=== PATIENT | female | born 1995 | race Caucasian/White ===

== ENCOUNTER 2017-02-12 09:30 | Emergency (ER) | payer BC ==
[~2017-02-12 09:30] MED LIST: BACTRIM DS TABL1 TA1 PO; BACTRIM DS TABL1 TA2 DOB; BCP; BIRTH CONTROL PILL; BIRTH CONTROL PILL PO; COLACE PO; PHENERGAN25 M1 PO; PYRIDIUM PO; VOLTAREN75 MG PO; ZOFRAN PO
== END 2017-02-12 09:57 | disposition home or self-care (01) ==
LOC: SED 09:30
DX: S05.01XA Injury of conjunctiva and corneal abrasion without foreign body, right eye, initial encounter (principal); F41.9 Anxiety disorder, unspecified; X58.XXXA Exposure to other specified factors, initial encounter
CPT/HCPCS: 99283

== ENCOUNTER 2017-04-20 08:13 | Emergency (ER) | payer BC ==
[2017-04-20 09:06] LABS: URINE SOURCE CLEAN CATCH
[2017-04-20 09:09] LABS: URINE APPEARANCE CLEAR; URINE BILIRUBIN NEG (NEG); URINE BLOOD 2+ (NEG); URINE COLOR YELLOW; URINE GLUCOSE NEG (NORM); URINE KETONE NEG (NEG); URINE LEUKOCYTE ESTERASE 2+ (NEG); URINE NITRATE NEG (NEG); URINE PROTEIN NEG (NEG); URINE SPECIFIC GRAVITY 1.015 (1.003-1.035); URINE UROBILINOGEN 0.2 MG/DL (NORM)
[2017-04-20 09:15] LABS: MICRO INDICATED? YES
[2017-04-20 09:20] LABS: CULTURE INDICATED? YES; URINE BACTERIA NEG (NEG); URINE MUCUS PRESENT; URINE SQUAMOUS EPITHELIAL CELL MODERATE /[HPF]
[2017-04-23 17:22] LABS: CHLAMYDIA TRACH Not Detected (Not Detected); N GONOR Not Detected (Not Detected)
== END 2017-04-20 10:00 | disposition home or self-care (01) ==
LOC: SED 08:13
PROVIDERS: Emergency Medicine
DX: N76.0 Acute vaginitis (principal); N39.0 Urinary tract infection, site not specified; F41.9 Anxiety disorder, unspecified
CPT/HCPCS: 81003; 84703; 87086; 87491; 87591; 99283

== ENCOUNTER 2017-06-15 17:28 | Emergency (ER) | payer BC ==
[~2017-06-15] VITALS: Ht 170.2 cm; Wt 72.6 kg
--- NOTE | ~2017-06-15 | CT2 ---
[facility] A Service of [facility] RADIOLOGY TEXT RESULTS PATIENT: ZACHARY VILLAGRAN LOCATION: SED : [birth year] UNIT #: [id number] AGE: [address]: ALLEY MAZARIEGOS SEX: F ORDER DR: [id number] [address] [address] [id number] E MR#: [id number] Acc #: [id number] NAME: ZACHARY VILLAGRAN : 1995 SEX: F STUDY DATE/TIME: 06/15/2017 20:15 UNIT: SED ROOM: STUDY DESCRIPTION: CT Abd and Pelv W Cont Attending Physician: Alley Mazariegos A.P.R.N. Ordering Physician: Pj Mazariegos Primary Care Physician: Chepe Summers Jr., M.D. MEDICAL IMAGING REPORT This report is preliminary unless electronic signature is present. EXAM CT abdomen and pelvis without IV contrast. COMPARISON February 12, 2012. INDICATION 21-year-old female with right-sided abdominal pain since yesterday. Recent diagnosis of pyelonephritis. TECHNIQUE This CT exam was performed with one or more of the following radiation dose reduction techniques: automatic control, adjustment of mA and/or kV according to patient size, and iterative reconstruction. FINDINGS Axial CT imaging of the abdomen and pelvis was performed after IV administration of 100 mL of Isovue-370. Coronal and sagittal reformats were constructed. No acute fractures or suspicious osseous lesions. No acute findings in the imaged lower chest. Gallbladder is fluid distended but otherwise unremarkable. The liver, pancreas, spleen, adrenal glands and kidneys are within normal limits. No renal or ureteral calculi. No hydronephrosis or hydroureter. Urinary bladder is unremarkable. No adnexal masses are seen. Normal bowel caliber. No evidence of acute appendicitis. There is fluid distension of the proximal most jejunum just beyond the ligament of Treitz without evidence of transition point. No evidence of high-grade mechanical bowel obstruction. No free fluid or pneumoperitoneum. No adenopathy. Abdominal aorta is normal in course and caliber, with patency of its main branches. Admixture artifact seen in the portal confluence. No evidence of venous thrombosis. Main branches of the abdominal aorta are widely patent. IMPRESSION [facility]. [facility] A Service of [facility] RADIOLOGY TEXT RESULTS PATIENT: ZACHARY VILLAGRAN LOCATION: SED : [birth year] UNIT #: [id number] AGE: [address]: ALLEY MAZARIEGOS SEX: F ORDER DR: 1. No definite acute findings in the abdomen, pelvis or imaged lower chest. There is fluid distension of the gallbladder which is otherwise unremarkable. There is short segment fluid distension of the proximal jejunum just beyond the ligament of Treitz without definite transition point appearing to represent normal peristalsis. Clinical correlation recommended. 2. Normal appearance of the kidneys. Dictated by... Rogers Mars M.D. THIS IS AN ELECTRONICALLY VERIFIED REPORT Rogers Mars M.D. at 06/22/2017 8:18 PM DOMENICA/cindy TD: 06/16/2017 03:07 JOB #: [id number] MEDICAL IMAGING REPORT Page 1 of 1
--- NOTE | ~2017-06-15 | US134 ---
[facility] A Service of [facility] RADIOLOGY TEXT RESULTS PATIENT: ZACHARY VILLAGRAN LOCATION: SED : [birth year] UNIT #: [id number] AGE: [address]: ALLEY MAZARIEGOS SEX: F ORDER DR: [id number] [address] [address] [id number] E MR#: [id number] Acc #: [id number] NAME: ZACHARY VILLAGRAN : 1995 SEX: F STUDY DATE/TIME: 06/15/2017 23:05 UNIT: SED ROOM: STUDY DESCRIPTION: Transvaginal Attending Physician: Alley Mazariegos A.P.R.N. Ordering Physician: Pj Mzaariegos Primary Care Physician: Chepe Summers Jr., M.D. MEDICAL IMAGING REPORT This report is preliminary unless electronic signature is present. EXAM Pelvic ultrasound INDICATIONS Right-sided pelvic pain today. PROCEDURE Wilson-scale and Doppler imaging of the pelvis via transabdominal and transvaginal approach. COMPARISON None FINDINGS Uterus is anteverted and measures 8.2 x 2.7 x 5.1 cm. Right ovary measures 2.4 x 4.0 x 2.2 cm and contains small normal-appearing follicles. Left ovary measures 2.6 x 3.4 x 1.8 cm and contains a few small follicles. Endometrium measures 3 mm in thickness. IMPRESSION Negative pelvic ultrasound for the patient's age. Dictated by... Rory Bee M.D. THIS IS AN ELECTRONICALLY VERIFIED REPORT Rory Bee M.D. at 06/16/2017 10:25 PM KAYLEYD/sheryl TD: 06/16/2017 06:59 [facility] A Service of [facility] RADIOLOGY TEXT RESULTS PATIENT: ZACHARY VILLAGRAN LOCATION: SED : [birth year] UNIT #: [id number] AGE: [address]: ALLEY MAZARIEGOS SEX: F ORDER DR: JOB #: [id number] MEDICAL IMAGING REPORT Page 1 of 1
[2017-06-15 18:12] LABS: BASOPHIL# 0.1 X10e3 (0-0.3); BASOPHIL% 0.9 % (0-2.5); EOSINOPHIL# 0.1 X10e3 (0-0.7); EOSINOPHIL% 1.5 % (0.0-7.0); HEMATOCRIT 41.8 % (35.0-45.0); HEMOGLOBIN 14.1 gm/dL (12.0-16.0); LYMPHOCYTE# 1.9 X10e3 (1.0-3.5); LYMPHOCYTE% 23.8 % (17.0-45.0); MEAN CELL VOLUME 94.4 FL (83-96); MEAN CORPUSCULAR HEMOGLOBIN 31.9 PG (28-34); MEAN CORPUSCULAR HGB CONC 33.7 g/dL (30-36); MEAN PLATELET VOLUME 7.3 FL (6.5-11.5); MONOCYTE# 0.6 X10e3 (0-1.0); MONOCYTE% 7.5 % (3.0-12.0); NEUTROPHIL# 5.3 X10e3 (1.5-7.1); NEUTROPHIL% 66.3 % (40-75); PLATELET COUNT 348 X10e3 (140-420); RED BLOOD COUNT 4.43 X10e (3.90-5.30); RED CELL DISTRIBUTION WIDTH 13.2 % (11.0-15.5)
[2017-06-15 18:18] LABS: DIFF IND NO
[2017-06-15 18:33] LABS: ALBUMIN SERUM 4.5 g/dL (3.5-5.0); BILIRUBIN,TOTAL 0.6 mg/dL (0.2-2.0); BUN/CREATININE RATIO 22.5; CALCIUM SERUM 9.5 mg/dL (8.4-10.2); CREATININE SERUM 0.8 mg/dL (0.6-1.4); POTASSIUM 3.6 mmol/L (3.5-5.1); PROTEIN TOTAL SERUM 7.4 g/dL (6.0-8.3)
[2017-06-15 18:57] LABS: URINE SOURCE CLEAN CATCH
[2017-06-15 19:00] LABS: URINE APPEARANCE CLEAR; URINE BILIRUBIN NEG (NEG); URINE BLOOD NEG (NEG); URINE COLOR YELLOW; URINE GLUCOSE NEG (NORM); URINE KETONE NEG (NEG); URINE LEUKOCYTE ESTERASE 2+ (NEG); URINE NITRATE NEG (NEG); URINE PH 6.5 (5-8); URINE PROTEIN NEG (NEG); URINE UROBILINOGEN 0.2 MG/DL (NORM)
[2017-06-15 19:02] LABS: MICRO INDICATED? YES
[2017-06-15 19:09] LABS: CULTURE INDICATED? YES; URINE BACTERIA 2+ (NEG); URINE MUCUS PRESENT; URINE SPERM PRESENT; URINE SQUAMOUS EPITHELIAL CELL MODERATE /[HPF]; URINE WBC 50-100 /[HPF] (0-5)
[2017-06-16] MEDS ORDERED: MACROBID100 M1 DOB (00:56)
[2017-06-18 11:02] LABS: CHLAMYDIA TRACH Not Detected (Not Detected); N GONOR Not Detected (Not Detected)
== END 2017-06-16 00:56 | disposition home or self-care (01) ==
LOC: SED 17:28
PROVIDERS: Nurse Practitioner
DX: N89.8 Other specified noninflammatory disorders of vagina (principal); N39.0 Urinary tract infection, site not specified; F41.9 Anxiety disorder, unspecified; F17.200 Nicotine dependence, unspecified, uncomplicated; Z79.899 Other long term (current) drug therapy
CPT/HCPCS: 36415; 74177; 76830; 80053; 81003; 83690; 84703; 85025; 87086; 87210; 87491; 87591; 87808; 87905; 96361; 96374; 96375; 99284; J0696; J1885; J2270; J2405; Q9967

== ENCOUNTER 2017-06-16 23:48 | Emergency (ER) | payer BC ==
[~2017-06-16] VITALS: Ht 170.2 cm; Wt 72.6 kg
--- NOTE | ~2017-06-16 | CT16 ---
[facility] A Service of [facility] RADIOLOGY TEXT RESULTS PATIENT: ZACHARY VILLAGRAN LOCATION: SED : [birth year] UNIT #: [id number] AGE: [address]: Earl Crawford MD SEX: F ORDER DR: [id number] [address] [address] [id number] E MR#: [id number] Acc #: [id number] NAME: ZACHARY VILLAGRAN : 1995 SEX: F STUDY DATE/TIME: 06/17/2017 3:28 UNIT: SED ROOM: STUDY DESCRIPTION: CT Angio Chest for PE Attending Physician: Earl Crawford M.D. Ordering Physician: Chepe Valenzuela M.D. Primary Care Physician: Chepe Summers Jr., M.D. MEDICAL IMAGING REPORT This report is preliminary unless electronic signature is present. EXAM CTA chest PE protocol INDICATIONS Elevated D-dimer level. Acute onset chest pain today. PROCEDURE Contrast-enhanced CTA of the chest attention on opacification of the pulmonary arteries, 3-D MIP sagittal reformatted images reconstructed and submitted. The CT exam was performed with one or more of the following radiation dose reduction techniques: automatic exposure control, adjustment of mA and/or kV according to patient size, and iterative reconstruction. COMPARISON None FINDING No evidence for pulmonary embolus or acute aortic injury. No adenopathy. No acute findings in the included upper abdomen. No dense consolidation. No aggressive appearing bone lesion. IMPRESSION No acute findings in the chest. No evidence for pulmonary embolus. Dictated by... Rory Bee M.D. THIS IS AN ELECTRONICALLY VERIFIED REPORT [facility] A Service of [facility] RADIOLOGY TEXT RESULTS PATIENT: ZACHARY VILLAGRAN LOCATION: SED : [birth year] UNIT #: [id number] AGE: [address]: Earl Crawford MD SEX: F ORDER DR: Rory Bee M.D. at 06/17/2017 10:02 PM EED/baldomero TD: 06/17/2017 10:21 JOB #: [id number] MEDICAL IMAGING REPORT Page 1 of 1
--- NOTE | ~2017-06-16 | US67 ---
[facility] A Service of [facility] RADIOLOGY TEXT RESULTS PATIENT: ZACHARY VILLAGRAN LOCATION: SED : [birth year] UNIT #: [id number] AGE: [address]: Earl Crawford MD SEX: F ORDER DR: [id number] [address] [address] [id number] E MR#: [id number] Acc #: [id number] NAME: ZACHARY VILLAGRAN : 1995 SEX: F STUDY DATE/TIME: 06/17/2017 8:37 UNIT: SED ROOM: STUDY DESCRIPTION: Gallbladder Attending Physician: Earl Crawford M.D. Ordering Physician: Chepe Valenzuela M.D. Primary Care Physician: Chepe Summers Jr., M.D. MEDICAL IMAGING REPORT This report is preliminary unless electronic signature is present. EXAM Gallbladder ultrasound, 06/17 INDICATION Right upper quadrant pain for the last 4 days. Nausea and vomiting and diarrhea for 1 day. FINDINGS Sonographic evaluation is performed of the right upper quadrant in multiple planes. Comparison is made with 06/15/2017 CT abdomen and pelvis. Pancreas is normal. The liver parenchyma is homogeneous and normal. No liver mass. Main portal vein is patent by Doppler. Gallbladder is normal. No stones are seen. There is no gallbladder wall thickening. Common duct is 4.0 mm internal diameter. Minimal sludge is present within the gallbladder. Right kidney is morphologically normal and nonobstructed. No free fluid is seen. IMPRESSION Minimal gallbladder sludge, otherwise normal right upper quadrant ultrasound. Dictated by... Jayme Plunkett Jr., M.D. THIS IS AN ELECTRONICALLY VERIFIED REPORT Jayme Plunkett Jr., M.D. at 06/17/2017 5:19 PM RENZO/donna TD: 06/17/2017 13:15 JOB #: [id number] [facility] A Service of [facility] RADIOLOGY TEXT RESULTS PATIENT: ZACHARY VILLAGRAN LOCATION: SED : [birth year] UNIT #: [id number] AGE: [address]: Earl Crawford MD SEX: F ORDER DR: MEDICAL IMAGING REPORT Page 1 of 1
--- NOTE | ~2017-06-16 | EKG ---
PATIENT: ZACHARY VILLAGRAN UNIT #: [id number] Ventricular Rate: 78 BPM Atrial Rate: 78 BPM P-R Interval: 156 ms QRS Duration: 74 ms Q-T Interval: 328 ms QTC Calculation(Bezet): 373 ms P [place]: 52 degrees Calculated R [place]: 62 degrees Calculated T [place]: 40 degrees Diagnosis Line: Normal sinus rhythm with sinus arrhythmia Diagnosis Line: Normal ECG Diagnosis Line: Diagnosis Line: Confirmed by ALLEY ESQUIVEL MD ([id number]) on Diagnosis Line: 06/17/2017 12:45:34 PM INTERPRETING MD: ALVIN RAMIREZ
[~2017-06-16 23:48] MED LIST changes: +MACROBID100 M1 DOB
[2017-06-17 00:47] LABS: URINE SOURCE CLEAN CATCH
[2017-06-17 00:49] LABS: URINE APPEARANCE CLEAR; URINE BILIRUBIN NEG (NEG); URINE BLOOD NEG (NEG); URINE COLOR YELLOW; URINE GLUCOSE NEG (NORM); URINE KETONE NEG (NEG); URINE LEUKOCYTE ESTERASE TRACE (NEG); URINE NITRATE NEG (NEG); URINE PROTEIN NEG (NEG); URINE UROBILINOGEN 0.2 MG/DL (NORM)
[2017-06-17 00:54] LABS: MICRO INDICATED? YES
[2017-06-17 01:06] LABS: CULTURE INDICATED? YES; URINE BACTERIA 2+ (NEG); URINE MUCUS PRESENT; URINE SQUAMOUS EPITHELIAL CELL MANY /[HPF]
[2017-06-17 01:15] LABS: BASOPHIL% 0.4 % (0-2.5); DIFF IND NO; EOSINOPHIL# 0.1 X10e3 (0-0.7); EOSINOPHIL% 0.6 % (0.0-7.0); HEMATOCRIT 40.7 % (35.0-45.0); HEMOGLOBIN 14.1 gm/dL (12.0-16.0); LYMPHOCYTE% 9.4 % (17.0-45.0); MEAN CELL VOLUME 94.5 FL (83-96); MEAN CORPUSCULAR HEMOGLOBIN 32.6 PG (28-34); MEAN CORPUSCULAR HGB CONC 34.5 g/dL (30-36); MEAN PLATELET VOLUME 7.3 FL (6.5-11.5); MONOCYTE# 0.1 X10e3 (0-1.0); NEUTROPHIL# 9.3 X10e3 (1.5-7.1); NEUTROPHIL% 88.6 % (40-75); PLATELET COUNT 329 X10e3 (140-420); RED BLOOD COUNT 4.31 X10e (3.90-5.30); RED CELL DISTRIBUTION WIDTH 13.2 % (11.0-15.5); WHITE BLOOD COUNT 10.5 X10e3 (4.0-10.5)
[2017-06-17 01:30] LABS: ALBUMIN SERUM 3.9 g/dL (3.5-5.0); ALKALINE PHOSPHATASE 59 U/L (32-92); ALT (SGPT) 23 U/L (10-40); AST (SGOT) 32 U/L (10-42); BILIRUBIN,TOTAL 0.1 mg/dL (0.2-2.0); BLOOD UREA NITROGEN 18 mg/dL (9-23); CARBON DIOXIDE 26 mmol/L (22-31); CHLORIDE 104 mmol/L (100-111); CREATININE SERUM 0.8 mg/dL (0.6-1.4); GLUCOSE FASTING 90 mg/dL (70-110); LIPASE 29 U/L (22-51); POTASSIUM 3.9 mmol/L (3.5-5.1); PROTEIN TOTAL SERUM 6.8 g/dL (6.0-8.3); SODIUM 137 mmol/L (135-145)
[2017-06-17 01:32] LABS: BILIRUBIN, DIRECT <0.1 mg/dL (0.0-0.2)
[2017-06-17 03:00] LABS: POC - CKMB 1.2 ng/mL (0.0-7.9)
[2017-06-17 03:01] LABS: POC - TROPONIN <0.05 ng/mL (<=0.05)
[2017-06-17 07:07] LABS: POC - CKMB <1.0 ng/mL (0.0-7.9)
[2017-06-17 07:08] LABS: POC - TROPONIN <0.05 ng/mL (<=0.05)
== END 2017-06-17 10:11 | disposition home or self-care (01) ==
LOC: SED 23:48
PROVIDERS: Emergency Medicine
DX: N39.0 Urinary tract infection, site not specified (principal); R07.9 Chest pain, unspecified; F41.9 Anxiety disorder, unspecified; F17.200 Nicotine dependence, unspecified, uncomplicated
CPT/HCPCS: 36415; 71275; 76705; 80048; 80076; 81003; 82553; 83690; 84484; 85025; 85379; 87086; 93005; 96374; 96375; 99285; J1885; J2270; J2405; J3360; Q9967

== ENCOUNTER → 2017-06-18 | Outpatient (CLI) | payer BC ==
--- NOTE | ~2017-06-18 | CT2 ---
[facility] A Service of [facility] RADIOLOGY TEXT RESULTS PATIENT: ZACHARY VILLAGRAN LOCATION: [facility] : [birth year] UNIT #: [id number] AGE: [address]: Raymundo Han MD SEX: F ORDER DR: [id number] [id number] [facility]. [place], [place] [address] [id number] O MR#: [id number] [facility] #: [id number] NAME: ZACHARY VILLAGRAN : 1995 SEX: F STUDY DATE/TIME: 06/18/2017 12:06 UNIT: [facility] ROOM: STUDY DESCRIPTION: CT Abd and Pelv W Cont Attending Physician: Raymundo Han M.D. Referring Physician: Raymundo Han M.D. Ordering Physician: Raymundo Han M.D. Primary Care Physician: Chepe Summers Jr., M.D. MEDICAL IMAGING REPORT This report is preliminary unless electronic signature is present EXAM CT abdomen and pelvis with contrast HISTORY A 21-year-old female with abdominal pain since last Saturday06/14/2017. Right lower quadrant pain nausea vomiting. COMPARISON Gallbladder sonogram 06/17/[address] chest PE protocol 06/17/2017. Comparison also made to CT abdomen and pelvis 06/15/2017 FINDINGS Axial images form through the abdomen and pelvis following IV contrast. Multiplanar reconstructed images reviewed at a workstation. This CT exam was performed with one or more of the following radiation dose reduction techniques: automatic exposure control, adjustment of mA and/or kV according to patient size, and iterative reconstruction. FINDINGS Abdomen: Lung bases unremarkable. Liver, spleen, gallbladder, pancreas, kidneys and adrenal glands appear normal. No free air or free fluid. Visualized GI tract to include the appendix is normal. Retroperitoneum is unremarkable. Pelvis: The bladder, uterus and adnexa appear normal. Osseous structures and soft tissues appear normal. Apparent vaginal ring noted. IMPRESSION Normal CT abdomen pelvis. [facility] A Service [facility] RADIOLOGY TEXT RESULTS PATIENT: ZACHARY VILLAGRAN [id number] [birth year] UNIT #: [id number] AGE: [address]: Raymundo Han MD SEX: F ORDER DR: Findings were called to Dr. Han following this dictation. Dictated by... Amy Smith M.D. THIS IS AN ELECTRONICALLY VERIFIED REPORT Amy Smith M.D. at 06/19/2017 7:42 AM ZEENAT/sheryl TD: 06/18/2017 21:08 JOB #: [id number] MEDICAL IMAGING REPORT Page 1 of 1 COPY
== END | disposition home or self-care (01) ==
LOC: CCAT 10:00
DX: R10.9 Unspecified abdominal pain (principal)
CPT/HCPCS: 74177; Q9967